=== PATIENT | male | born 1950 | race African-American/Black ===

== ENCOUNTER 2016-11-30 00:11 | Emergency (ER) | payer OTHER ==
[~2016-11-30] VITALS: Ht 188 cm; Wt 149.7 kg
[~2016-11-30 00:11] MED LIST: ACTOS 30 MG TAB30 M2 PO; ADULT LOW DOSE81 MG PO; CLARITIN10 MG PO; DOXYCYCLINE 10100 MG PO; FLOMAX0.4 MG PO; JANUMET 50-5001 EACH PO; JANUMET XR 1001 EACH PO; LOSARTAN POTAS100 MG PO; MUCINEX600 MG PO; NITROGLYCERIN0.4 MG SUBLING; PENICILLIN VK500 M1 PO; PHENERGAN-CODE120 ML PO; PREDNISONE 20 M20 MG PO; PROTONIX40 M2 PO; TOPROL XL25 MG PO; ZPAK PO; [UNRECOGNIZED DRUG - REMARK]
[2016-11-30] MEDS ORDERED: NAPROSYN500 MG PO (01:34)
== END 2016-11-30 01:57 | disposition home or self-care (01) ==
LOC: ER 00:11
DX: J02.9 Acute pharyngitis, unspecified (principal); I10 Essential (primary) hypertension; E11.9 Type 2 diabetes mellitus without complications; Z87.01 Personal history of pneumonia (recurrent); Z98.890 Other specified postprocedural states

== ENCOUNTER 2017-02-26 21:11 | Inpatient (IN) | payer OTHER ==
[~2017-02-26] VITALS: Ht 188 cm; Wt 149.7 kg
--- NOTE | ~2017-02-26 | 2DMMODE ---
[facility] [address] [place] [address] 2 D/M-MODE ECHOCARDIOGRAM Name: ROYER DOMINGUEZ Room #: 421-P ADM IN ..#: [id number] Admission: 02/27/17 Attend Phys: Dino Diana MD Discharge: Date of : 48 Date of Service: 02/27/17 0859 Report #: [id number] THIS REPORT FOR: //name// APPROVED REPORT Study performed: 02/27/2017 08:07:53 EXAM: Comprehensive 2D, Doppler, and color-flow Echocardiogram Patient Location: Echo lab Room #: 421 Status: routine BSA: 2.69 BP: 161/89 mmHg Other Information Study Quality: Technically Difficult/Adequate Technically limited study due to body habitus. Indications Diabetes Dyspnea Hypertension/HDD 2D Dimensions RVDd: 36.35 mm LVEF(%): 67.27 (>50%) IVSd: 19.68 (7-11mm) LVOT Diam: 19.29 (18-24mm) LVDd: 42.25 mm PWd: 18.43 (7-11mm) Ascending Ao: 29.26 (22-36mm) LVDs: 26.62 (25-40mm) Aortic Root: 31.15 mm IVC: 21.00 mm Finn's LVEF: 67.27 % Volumes Left Atrial Volume (Systole) Single Plane 4CH: 39.79 mL Single Plane 2CH: 61.60 mL LA ESV Index: 20.00 mL/m2 Aortic Valve AoV Peak Riki.: 2.03 m/s AO Peak Gr.: 16.55 mmHg LVOT Max P.94 mmHg LVOT Max V: 1.50 m/s RICHARD Vmax: 2.15 cm2 [facility] [place] [address] 2 D/M-MODE ECHOCARDIOGRAM Name: MELVINA DOMINGUEZIF KHRIS Room #: 421-P [facility] IN .R.#: [id number] Admission: 02/27/17 Attend Phys: Dino Diana MD Discharge: Date of : 48 Date of Service: 02/27/17 0859 Report #: [id number] Mitral Valve E/A Ratio: 1.2 MV Decel. Time: 143.15 ms MV E Max Riki.: 1.02 m/s MV A Riki.: 0.87 m/s MV PHT: 41.51 ms IVRT: 79.58 ms Pulmonary Valve PV Peak Riki.: 1.28 m/s PV Peak Gr.: 6.56 mmHg Pulmonary Vein P Vein S: 0.74 m/s P Vein A: 0.26 m/s P Vein D: 0.53 m/s P Vein A Dur.: 107.3 msec P Vein S/D Ratio: 1.40 Tricuspid Valve RAP Estimate: 5.00 mmHg Left Ventricle The left ventricle is normal size. There is normal LV segmental wall motion. Moderate concentric left ventricular hypertrophy. The left ventricular systolic function is normal. The left ventricular ejection fraction is within the normal range. LVEF is 65%. Moderate diastolic dysfunction is present (pseudonormal filling). Right Ventricle Right ventricle is at the upper limits of normal. The right ventricular systolic function is normal. Atria The left atrium size is normal. Right atrium is at the upper limits of normal. Aortic Valve The aortic valve is normal in structure, trileaflet. No aortic regurgitation is present. There is no aortic valvular stenosis. Mitral Valve The mitral valve is normal in structure. There is no mitral valve regurgitation noted. No evidence of mitral valve stenosis. Tricuspid Valve The tricuspid valve is normal in structure. Trace tricuspid regurgitation. Unable to assess PA pressure. [facility] [address] [place] [address] 2 D/M-MODE ECHOCARDIOGRAM Name: ROYER DOMINGUEZ Room #: 421-P [facility] [place] [facility]#: [id number] Admission: 02/27/17 Attend Phys: Dino Diana MD Discharge: Date of : 48 Date of Service: 02/27/17 0859 Report #: [id number] Pulmonic Valve Pulmonic valve is not well visualized. There is no pulmonic valvular regurgitation visualized. Great Vessels The aortic root is normal in size. IVC is at the upper limits normal in size and collapses >50% with inspiration. Pericardium There is no pericardial effusion. <Conclusion> The left ventricular systolic function is normal. There is normal LV segmental wall motion. LVEF is 65%. Moderate LVH The aortic valve is normal in structure, trileaflet. No aortic regurgitation or stenosis. The mitral valve is normal in structure. No mitral valve regurgitation noted. Pulmonary artery pressure could not be reliably ascertained There is no pericardial effusion. <ELECTRONICALLY SIGNED> By: Agapito Mcgovern MD, FACC 02/27/17 0859 Agapito Mcgovern MD, FACC /INF
--- NOTE | ~2017-02-26 | EKG ---
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 : 1950 Requested By: Cristopher Vuong Order Number: [id number] MD: Agapito Mcgovern Measurements Intervals Mars Rate: 93 P: 85 KS: 180 QRS: 77 QRSD: 102 T: 144 QT: 374 QTc: 466 Interpretive Statements Sinus rhythm Abnrm T, consider ischemia, anterolateral lds Minimal ST elevation, inferior leads Compared to ECG 01/10/2016 18:14:57 No significant change was found Electronically Signed On 02-27-2017 8:23:55 AVIATION TECHNICIAN by Agapito Mcgovern [email or web address] <ELECTRONICALLY SIGNED> By: Agapito Mcgovern MD, FACC 02/27/17 0823 05 05 Agapito Mcgovern MD, [facility] /EPI
[~2017-02-26 21:11] MED LIST changes: +NAPROSYN500 MG PO
[2017-02-26 21:20] VITALS: BP 180/92
[2017-02-26 21:56] LABS: HEMATOCRIT 38.5 % (42.0-52.0); HEMOGLOBIN 13.1 gm/dL (14.0-18.0); MCH 30.6 pg (26.0-34.0); MCHC 34.1 g/dL (28.0-37.0); MCV 89.9 fL (80.0-100.0); PLATELET COUNT 228 thou/uL (150-400); RBC 4.28 mil/uL (4.50-6.00); WBC 19.4 thou/uL (4.0-11.0)
[2017-02-26 21:57] LABS: URINE BILIRUBIN NEGATIVE (Negative); URINE BLOOD NEGATIVE (Negative); URINE CLARITY CLEAR; URINE COLOR YELLOW; URINE GLUCOSE-RANDOM* NEGATIVE (Negative); URINE KETONES NEGATIVE (Negative); URINE LEUKOCYTES-REFLEX NEGATIVE (Negative); URINE NITRITE-REFLEX NEGATIVE (Negative); URINE PROTEIN (DIPSTICK) 1+ (Negative); URINE SPECIFIC GRAVITY 1.015 (1.005-1.035)
[2017-02-26] MEDS ORDERED: PIOGLITAZONE15 MG PO (22:01)
[2017-02-26] MEDS ORDERED: LISINOPRIL10 MG PO (22:02)
[2017-02-26 22:04] LABS: BACTERIA-REFLEX 1-9 Few /HPF (None Seen); CASTS None Seen /LPF (None Seen); CRYSTALS None Seen /LPF (None Seen); SQUAMOUS None Seen /LPF (0-3); URINE RBC None Seen /HPF (0-2); URINE WBC-REFLEX 0-5 Rare /HPF (0-5)
[2017-02-26 22:05] LABS: ANION GAP 10 mmol/L (7-16); BUN 9 mg/dL (7-18); CALCIUM 9.3 mg/dL (8.5-10.1); CHLORIDE 103 mmol/L (98-107); CO2 25 mmol/L (21-32); CREATININE 1.1 mg/dL (0.7-1.3); GLUCOSE 180 mg/dL (74-106); POTASSIUM 3.7 mmol/L (3.5-5.1); SODIUM 138 mmol/L (136-145)
[2017-02-26 22:13] LABS: ALBUMIN 3.5 g/dL (3.4-5.0); LIPASE 221 U/L (73-393); MAGNESIUM 1.6 mg/dL (1.8-2.4); SGOT 16 U/L (15-37); SGPT 30 U/L (30-65); TOTAL BILIRUBIN 0.8 mg/dL (<0.1-1.0); TOTAL PROTEIN 7.6 g/dL (6.4-8.2); TROPONIN-I < 0.04 ng/mL (<0.06)
[2017-02-26 22:22] LABS: ABSOLUTE NEUTROPHILS 16.1 thou/uL (1.4-8.2); ANISOCYTOSIS 2+; POLYCHROMASIA OCCASIONAL
[2017-02-26 22:23] LABS: MICROCYTES 1+
[2017-02-26 23:20] LABS: BE(vivo) 1.1 mmol/L (-2 to +3); HCO3 26.5 mmol/L (22.0-26.0); PCO2 VENOUS 45.1 mmHg (41.0-51.0); PO2 VENOUS 32.6 mmHg (35.0-45.0)
[2017-02-27] VITALS (7 sets, daily range): BP systolic 124–180; BP diastolic 53–92
[2017-02-27 04:25] LABS: HEMATOCRIT 37.9 % (42.0-52.0); HEMOGLOBIN 12.4 gm/dL (14.0-18.0); MCH 29.8 pg (26.0-34.0); MCHC 32.9 g/dL (28.0-37.0); MCV 90.7 fL (80.0-100.0); RBC 4.17 mil/uL (4.50-6.00); WBC 23.1 thou/uL (4.0-11.0)
[2017-02-27 04:33] LABS: CALCIUM 8.9 mg/dL (8.5-10.1); CREATININE 1.2 mg/dL (0.7-1.3); POTASSIUM 3.7 mmol/L (3.5-5.1)
[2017-02-28 03:39] VITALS: BP 142/74
[2017-02-28 06:49] LABS: HEMATOCRIT 34.7 % (42.0-52.0); HEMOGLOBIN 11.5 gm/dL (14.0-18.0); MCH 30.2 pg (26.0-34.0); MCV 91.3 fL (80.0-100.0); RBC 3.8 mil/uL (4.50-6.00); RDW 15.4 % (10.5-14.5); WBC 15.2 thou/uL (4.0-11.0)
[2017-02-28 07:07] LABS: CALCIUM 8.5 mg/dL (8.5-10.1); CREATININE 1.1 mg/dL (0.7-1.3)
[2017-02-28 07:35] VITALS: BP 135/74
[2017-02-28 15:25] VITALS: BP 136/59
[2017-02-28 20:45] VITALS: BP 139/80
[2017-03-01 04:38] VITALS: BP 142/76
[2017-03-01 08:23] VITALS: BP 136/79
[2017-03-01 11:13] LABS: ABSOLUTE NEUTROPHILS 5.5 thou/uL (1.4-8.2); BASOPHILS 1.1 % (0.0-2.0); HEMATOCRIT 35.6 % (42.0-52.0); HEMOGLOBIN 12.1 gm/dL (14.0-18.0); MCHC 34.1 g/dL (28.0-37.0); MONOCYTES 8.5 % (1.0-8.0); PLATELET COUNT 212 thou/uL (150-400); POLYS 70.4 % (36.0-66.0); RBC 3.91 mil/uL (4.50-6.00); RDW 15.4 % (10.5-14.5); WBC 7.8 thou/uL (4.0-11.0)
[2017-03-01 11:20] LABS: CREATININE 1.1 mg/dL (0.7-1.3); POTASSIUM 3.9 mmol/L (3.5-5.1)
[2017-03-01] MEDS ORDERED: CEFUROXIME500 MG PO (11:30)
[2017-03-01 11:41] VITALS: BP 136/79
[2017-10-23] MEDS ORDERED: TUSSIONEX PENN115 ML PO (04:52)
[2017-10-23] MEDS ORDERED: PROVENTIL HFA6.7 G1 INH (04:52)
== END 2017-03-01 12:26 | disposition home or self-care (01) | DRG 872 ==
LOC: ER 21:11 → EROBS 02-27 00:42 → 4E 02-27 00:42
PROVIDERS: Emergency Medicine; Hospitalist; Nurse Practitioner Family
DX: A41.9 Sepsis, unspecified organism (principal); N12 Tubulo-interstitial nephritis, not specified as acute or chronic; E87.2 Acidosis; Z68.41 Body mass index [BMI] 40.0-44.9, adult; I10 Essential (primary) hypertension; N40.0 Benign prostatic hyperplasia without lower urinary tract symptoms; E11.65 Type 2 diabetes mellitus with hyperglycemia; E66.9 Obesity, unspecified; Z79.899 Other long term (current) drug therapy; Z87.01 Personal history of pneumonia (recurrent); Z90.49 Acquired absence of other specified parts of digestive tract
CPT/HCPCS: 10084

== ENCOUNTER 2017-04-04 18:14 | Emergency (ER) | payer OTHER ==
[~2017-04-04] VITALS: Ht 188 cm; Wt 149.7 kg
[~2017-04-04 18:14] MED LIST changes: +CEFUROXIME500 MG PO; +LISINOPRIL10 MG PO; +PIOGLITAZONE15 MG PO
[2017-04-04] MEDS ORDERED: OSELB75 PO (19:27)
[2017-04-04] MEDS ORDERED: TAMIFLU75 MG PO (20:18)
[2017-04-04 20:45] VITALS: BP 131/66
[2017-10-23] MEDS ORDERED: TUSSIONEX PENN115 ML PO (04:52)
[2017-10-23] MEDS ORDERED: PROVENTIL HFA6.7 G1 INH (04:52)
== END 2017-04-04 20:51 | disposition home or self-care (01) ==
LOC: ER 18:14
DX: J06.9 Acute upper respiratory infection, unspecified (principal); J40 Bronchitis, not specified as acute or chronic; I10 Essential (primary) hypertension; E11.9 Type 2 diabetes mellitus without complications; Z90.49 Acquired absence of other specified parts of digestive tract; Z87.01 Personal history of pneumonia (recurrent)

== ENCOUNTER 2018-01-10 13:33 | Emergency (ER) | payer OTHER ==
[~2018-01-10] VITALS: Ht 188 cm; Wt 158.8 kg
[~2018-01-10 13:33] MED LIST changes: +OSELB75 PO; +PROVENTIL HFA6.7 G1 INH; +TAMIFLU75 MG PO; +TUSSIONEX PENN115 ML PO
[2018-01-10] MEDS ORDERED: PIOGLITAZONE15 MG (13:49)
[2018-01-10 13:54] LABS: URINE BILIRUBIN NEGATIVE (Negative); URINE BLOOD 3+ (Negative); URINE COLOR YELLOW; URINE GLUCOSE-RANDOM* NEGATIVE (Negative); URINE KETONES NEGATIVE (Negative); URINE NITRITE-REFLEX NEGATIVE (Negative); URINE PROTEIN (DIPSTICK) 1+ (Negative); URINE SPECIFIC GRAVITY 1.025 (1.005-1.035)
[2018-01-10 13:57] LABS: URINE CLARITY HAZY; URINE LEUKOCYTES-REFLEX TRACE (Negative)
[2018-01-10 14:10] LABS: SQUAMOUS None Seen /LPF (0-3)
[2018-01-10 14:11] LABS: BACTERIA-REFLEX 1-9 Few /HPF (None Seen); CASTS None Seen /LPF (None Seen); CRYSTALS None Seen /LPF (None Seen); URINE RBC >20 Many /HPF (0-2); URINE WBC-REFLEX 6-15 Few /HPF (0-5)
[2018-01-10 14:14] LABS: ABSOLUTE NEUTROPHILS 4.8 thou/uL (1.4-8.2); BASOPHILS 1.3 % (0.0-2.0); HEMATOCRIT 41.2 % (42.0-52.0); HEMOGLOBIN 13.8 gm/dL (14.0-18.0); MCH 30.7 pg (26.0-34.0); MCHC 33.5 g/dL (28.0-37.0); MCV 91.7 fL (80.0-100.0); MONOCYTES 7.8 % (1.0-8.0); PLATELET COUNT 245 thou/uL (150-400); POLYS 65.9 % (36.0-66.0); RDW 15.2 % (10.5-14.5); WBC 7.3 thou/uL (4.0-11.0)
[2018-01-10 14:26] LABS: CALCIUM 9.4 mg/dL (8.5-10.1); CREATININE 1.2 mg/dL (0.7-1.3)
[2018-01-10] MEDS ORDERED: CIPRO500 MG PO (14:32)
[2018-01-10] MEDS ORDERED: TRAMADOL 50 MG50 MG PO (14:32)
[2018-01-10 14:58] VITALS: BP 124/66
== END 2018-01-10 15:16 | disposition home or self-care (01) ==
LOC: ER 13:33
PROVIDERS: Nurse Practitioner Family; Student in an Organized Health Care Education/Training Program
DX: N12 Tubulo-interstitial nephritis, not specified as acute or chronic (principal); N39.0 Urinary tract infection, site not specified; E11.9 Type 2 diabetes mellitus without complications; I10 Essential (primary) hypertension; Z87.01 Personal history of pneumonia (recurrent)

== ENCOUNTER 2018-03-15 16:24 | Emergency (ER) | payer OTHER ==
[~2018-03-15] VITALS: Ht 188 cm; Wt 158.8 kg
[~2018-03-15 16:24] MED LIST changes: +CIPRO500 MG PO; +PIOGLITAZONE15 MG; +TRAMADOL 50 MG50 MG PO
[2018-03-15] MEDS ORDERED: CLEOCIN HCL150 MG PO (17:33)
[2018-03-15] MEDS ORDERED: KEFLEX500 M1 PO (17:35)
[2018-03-15] MEDS ORDERED: PREDNISONE 20 M20 MG PO (17:35)
[2018-03-15 18:38] VITALS: BP 152/75
== END 2018-03-15 17:49 | disposition home or self-care (01) ==
LOC: ER 16:24
DX: S10.86XA Insect bite of other specified part of neck, initial encounter (principal); I10 Essential (primary) hypertension; E11.9 Type 2 diabetes mellitus without complications; Z90.49 Acquired absence of other specified parts of digestive tract; W57.XXXA Bitten or stung by nonvenomous insect and other nonvenomous arthropods, initial encounter; Y92.89 Other specified places as the place of occurrence of the external cause; Y93.89 Activity, other specified; Y99.8 Other external cause status